=== PATIENT | male | born 1955 | race Caucasian/White ===

== ENCOUNTER 2019-12-17 05:48 | Day surgery (SDC) | payer BC ==
[2019-12-13 15:28] VITALS: BMI 27.2
[2019-12-17] MEDS ORDERED: Bupivacaine 0.25% HCL 30 ML VIAL ONE (06:38)
[2019-12-17] MEDS ORDERED: Lidocaine 1% w/Epinephrine 1:100K 20 ML VIAL ONE (06:38)
[2019-12-17] MEDS ORDERED: Midazolam HCl 2 mg/2 ml Vial ONE (06:51)
[2019-12-17] MEDS ORDERED: Fentanyl 100 MCG/2 ML VIAL ONE (06:51)
[2019-12-17] MEDS ORDERED: EPHEDRINE 25 MG/5 ML SYRINGE ONE (09:15)
[2019-12-17] MEDS ORDERED: Dexamethasone 20 MG/5 ML VIAL ONE (09:15)
[2019-12-17] MEDS ORDERED: diphenhydrAMINE 50 MG/ML VIAL ONE (09:15)
[2019-12-17] MEDS ORDERED: PROPOFOL 200 MG/20 ML VIAL ONE (09:15)
[2019-12-17] MEDS ORDERED: Ondansetron PF 4 MG/2 ML Vial ONE (09:15)
[2019-12-17] MEDS ORDERED: Lidocaine 1% PF 5 ML VIAL ONE (09:15)
[2019-12-17] MEDS ORDERED: Ketorolac Tromethamine 30 MG/ML VIAL ONE (09:15)
--- NOTE | 2019-12-17 09:52 | OP ---
DATE OF PROCEDURE: 12/17/2019 PREOPERATIVE DIAGNOSIS: Umbilical hernia. POSTOPERATIVE DIAGNOSIS: Umbilical hernia. PROCEDURE PERFORMED: Umbilical hernia repair with mesh, Ventralex ST small. ANESTHESIA: General. ESTIMATED BLOOD LOSS: Minimal. COMPLICATIONS: None. FINDINGS: Umbilical hernia. TECHNIQUE: The patient was taken to the operating room and laid supine on the operating room table. After general anesthetic was obtained. His abdomen was shaved, prepped and draped in a sterile fashion. Curved incision was made below the umbilicus. Cautery was used to dissect down to and score the fascia. Umbilical stalk was amputated to expose the umbilical defect. The edges of the defect were freshened and the hernia sac dissected off the sides. The small Ventralex ST mesh was brought into the sterile field, placed into the abdominal cavity and its tails laid out laterally. The tails were sewn via U-stitch of Ethibond suture to the edges of the fascia. The fascia was closed loosely over the mesh after the tails were cut. The wound was irrigated. Local anesthetic was applied. The umbilical stalk was tacked back down using 3-0 Vicryl, skin was closed using 3-0 Vicryl, 4-0 Monocryl, and Dermabond. The patient was sent to Recovery in stable condition. All instrument counts, needle counts, and lap counts were correct. Job ID: [id number]
== END 2019-12-17 09:45 | disposition home or self-care (01) ==
LOC: SDC 05:48
PROVIDERS: ATTEND Surgery
PROC: 0WUF0JZ Supplement Abdominal Wall with Synthetic Substitute, Open Approach (ICD-10-PCS; principal; 2019-12-17)
DX: K42.9 Umbilical hernia without obstruction or gangrene (principal); I10 Essential (primary) hypertension; E78.5 Hyperlipidemia, unspecified; J45.909 Unspecified asthma, uncomplicated; M10.9 Gout, unspecified; Z79.899 Other long term (current) drug therapy
CPT/HCPCS: J0690; J1100; J1200; J1885; J2250; J2405; J2704; J3010; S0020